=== PATIENT | female | born 1960 | race Hispanic/Latino ===

== ENCOUNTER 2016-12-31 16:46 | Emergency (ER) | payer OTHER ==
[2016-12-31 16:56] VITALS: BP 137/84; PULSE 83; RESP 18; TEMP 98.2; O2SAT 100
[2016-12-31] MEDS ORDERED: Lidocaine 1% Inj (20ml) IJ STA (17:26)
--- NOTE | 2016-12-31 17:30 | ED PDOC ---
HPI: General Adult Time Seen by Provider: 12/31/16 16:55 Chief Complaint (Nursing): Trauma Chief Complaint (Provider): Lip Laceration History Per: Patient History/Exam Limitations: no limitations Onset/Duration Of Symptoms: Hrs Additional Complaint(s): Loraine Shukla is a 56 year old female who presents to the ED for evaluation of laceration to lower lip sustained 2 hours prior to arrival. Patient states she tripped and fell forward into a fire extinguisher causing laceration to lower lip. No LOC was sustained, no loose teeth. Tetanus is up to date. Patient denies any acute pain, denies vision changes, dizziness, nausea or vomiting. No dizziness or syncope prior to injury. Past Medical History Reviewed: Historical Data, Nursing Documentation, Vital Signs Vital Signs: Last Vital Signs Temp 98.2 F 12/31/16 16:51 Pulse 83 12/31/16 16:51 Resp 18 12/31/16 16:51 BP 137/84 12/31/16 16:51 Pulse Ox 100 12/31/16 18:01 - Medical History PMH: No Chronic Diseases - Surgical History Surgical History: No Surg Hx - Family History Family History: States: No Known Family Hx - Living Arrangements Living Arrangements: With Family - Social History Current smoker - smoking cessation education provided: No Alcohol: Occasional Drugs: Denies - Immunization History Hx Tetanus Toxoid Vaccination: Yes (1 year ago) - Allergies Allergies/Adverse Reactions: Allergies Allergy/AdvReac Type Severity Reaction Status Date / Time amoxicillin Allergy RASH Verified 12/31/16 16:57 Review of Systems ROS Statement: Except As Marked, All Systems Reviewed And Found Negative Eyes: Negative for: Vision Change ENT: Positive for: Other (Lower lip injury) Gastrointestinal: Negative for: Nausea, Vomiting Neurological: Negative for: Headache, Dizziness, Other (No Loss of consciousness ) Physical Exam - Reviewed Nursing Documentation Reviewed: Yes Vital Signs Reviewed: Yes - Physical Exam Appears: Positive for: Well, Non-toxic, No Acute Distress Head Exam: Positive for: ATRAUMATIC, NORMAL INSPECTION, NORMOCEPHALIC Eye Exam: Positive for: Normal appearance, EOMI, PERRL ENT: Positive for: Normal ENT Inspection, Other (1 cm laceration just inferior to lower lip not involving the vermilion border with mild active bleeding. 1 cm puncture to mucosal surface of lower lip with no active bleeding. Full ROM of lower mandible. No foreign bodies noted or dental fracture, airway patent, uvula midline) Neck: Positive for: Painless ROM Cardiovascular/Chest: Positive for: Regular Rate, Rhythm Respiratory: Positive for: Normal Breath Sounds Extremity: Positive for: Normal ROM Neurologic/Psych: Positive for: Alert, Oriented - ECG O2 Sat by Pulse Oximetry: 100 (RA) Pulse Ox Interpretation: Normal Medical Decision Making Medical Decision Makin: Initial Impression: 56 year old female with a laceration to the lower lip. Initial Plan: * Lidocaine 1% 20ml * Suture repair of the lower lip laceration * Re-Eval See procedure note. Patient informed that sutures will dissolve on their own. Patient was advised to rinse with salt water after meals and to keep wounds clean and dry. Only verbal instructions were given, patient eloped from ED prior to receiving written d/c instructions. Scribe Attestation: Documented by Cb Valdivia acting as a scribe for Khalida Moscoso PA-C. Provider Scribe Attestation: All medical record entries made by the Scribe were at my direction and personally dictated by me. I have reviewed the chart and agree that the record accurately reflects my personal performance of the history, physical exam, medical decision making, and the department course for this patient. I have also personally directed, reviewed, and agree with the discharge instructions and disposition. Procedures - Laceration/Wound Repair Lower lip/chin region Wound Length (cm): 1 Wound's Depth, Shape: superficial Wound Explored: clean Anesthesia: 1% Lidocaine Volume Anesthetic (ccs): 3 Wound Repaired With: Sutures (2) Suture Size/Type: 5:0 (chromic) Layer Closure?: No Wound Complexity: Simple Sterile Dressing Applied?: No Disposition - Clinical Impression Clinical Impression: Lip laceration - Patient ED Disposition Is Patient to be Admitted: No Counseled Patient/Family Regarding: Diagnosis, Need For Followup - Disposition Disposition: Eloped (Patient given verbal instructions only, she eloped from ED before receiving and signing for written discharge instructions.) Disposition Time: 18:29 Condition: FAIR
== END 2016-12-31 18:00 | disposition home or self-care (01) ==
LOC: H.ER 16:46
DX: S01.511A Laceration without foreign body of lip, initial encounter (principal); Y92.89 Other specified places as the place of occurrence of the external cause; W19.XXXA Unspecified fall, initial encounter